=== PATIENT | female | born 1965 | race Caucasian/White ===

== ENCOUNTER 2017-08-11 10:29 | Emergency (ER) | payer MEDICAID ==
[2017-08-11 10:38] VITALS: TEMP 98.1; O2SAT 96
--- NOTE | 2017-08-11 11:18 | EDPHY ---
H & P Stated Complaint: epigastric pain since 07/22 worse post eting/sat/us epigastric hernia Time Seen by Provider: 08/11/17 10:53 HPI/ROS: CHIEF COMPLAINT: Postprandial epigastric pain since late June HISTORY OF PRESENT ILLNESS: 52-year-old female generally healthy complaining of postprandial epigastric pain since 07/22/2017. She describes the pain as exclusively postprandial. She last experienced it yesterday evening after eating a skin less baked potato and other bland food. Describes having bent over epigastric pain with mild nausea. No vomiting. Bowel movements have been normal. She has seen her primary care provider recently and also consultation with Dr Ravinder Chen surgery as recently as a few days ago. She has an appointment with [facility] Dr. Reagan Vickers scheduled for 09/03/2017 however she is concerned about the recurrent nature of this. She has a friend who is a starch cooker in [place] who recommend she come to the ER for evaluation. At the time I interview the patient she is currently asymptomatic. She did not eat breakfast today. PRIMARY CARE PROVIDER: Dr. Merlyn Velasquez REVIEW OF SYSTEMS: A ten point review of systems was performed and is negative with the exception of the items mentioned in the HPI PAST MEDICAL & SURGICAL HISTORY: No abdominal surgery history SOCIAL HISTORY: Nonsmoker, PHYSICAL EXAM (Prior to examination, patient consented to physical exam, hands were washed and my usual and customary physical exam procedures followed) 1) GENERAL: Well-developed, well-nourished, alert and oriented. Appears to be in no acute distress. 2) HEAD: Normocephalic, atraumatic 3) HEENT: Pupils equal, round, reactive to light bilaterally. Sclera anicteric. [Nasopharynx, oropharynx, clear, no lesions moist mucous membranes 4) NECK: Full range of motion, no meningeal signs. 5) LUNGS: Clear auscultation bilaterally, no wheezes, no rhonchi, no retractions. 6) HEART: Regular rate and rhythm, no murmur, no heave, no gallop. 7) ABDOMEN: No guarding, no rebound, no focal tenderness, negative McBurney's, negative Arora's, negative Rovsing's, negative peritoneal sign, 8) MUSCULOSKELETAL: Moving all extremities, no focal areas of tenderness, no obvious trauma. No peripheral edema or discoloration. 9) BACK: No CVA tenderness, no midline vertebral tenderness, no fluctuance, no step-off, no obvious trauma, no visual or palpable abnormality. 10) SKIN: No rash, no petechiae. 11) Psychiatric: Patient is oriented X 3, there is no agitation. DIFFERENTIAL DIAGNOSIS: In no particular order, including but not limited to biliary colic, cholecystitis, peptic ulcer disease, pancreatitis, and gastroenteritis. This is a partial list of diagnoses considered. These considerations are based on history, physical exam, past history and reassessment. - Personal History LMP (Females 10-55): Post Menopausal Current Tetanus/Diphtheria Vaccine: Yes - Medical/Surgical History Hx Asthma: No Hx Chronic Respiratory Disease: No Hx Diabetes: No Hx Cardiac Disease: No Hx Renal Disease: No Hx Cirrhosis: No Hx Alcoholism: No Hx HIV/AIDS: No Hx Splenectomy or Spleen Trauma: No Other PMH: denies - Social History Smoking Status: Never smoked Constitutional: Initial Vital Signs Temperature (C) 36.7 C 08/11/17 10:34 Heart Rate 77 08/11/17 10:34 Respiratory Rate 20 08/11/17 10:34 Blood Pressure 135/76 H 08/11/17 10:34 O2 Sat (%) 96 08/11/17 10:34 O2 Delivery Mode Room Air Allergies/Adverse Reactions: sulfacetamide Allergy (Verified 08/11/17 10:33) Home Medications: Medication Instructions Recorded Ambien 08/11/17 Gaviscon 80-14.2 mg Tab Chew 08/11/17 Klonopin 08/11/17 Prevacid 08/11/17 Medical Decision Making - Diagnostics Imaging Results: Imaging Impressions Abdomen Ultrasound 08/11/17 11:14 Impression: Normal right upper quadrant ultrasound. Mild limited visualization of the head of the pancreas secondary overlying bowel gas. Results called and discussed with Mynor Peters PA-C on August 11, 2017 at 1303 hours. ED Course/Re-evaluation: 11:18 a.m.: Will obtain diagnostic studies including ultrasound of the gallbladder, CT of abdomen and pelvis. Patient has been informed that these may be negative however she will necessitate further evaluation. At this time I do not think that admission for HIDA or MRCP currently indicated. Doubt cardiac etiology such as NE as the patient describes excludes postprandial pain. 1:28 p.m.: Re-evaluation. Discussed her laboratory and diagnostic results. Doubt acute pancreatitis, doubt acute cholecystitis, doubt acute appendicitis or acute surgical abdominal pathology. This point I do not think that further diagnostic studies, emergent GI consultation or hospitalization is indicated. Plan will be follow-up/keep her appointment with Gastroenterology. She is already on a PPI. We discussed dietary precautions instructions. She feels comfortable being discharged. All questions and concerns addressed by myself. Care of patient under supervision of secondary supervising physician Dr Patricia with whom I discussed case. 1:43 p.m.: Patient requested I speak with Dr. Reagan Vickers with whom she has an upcoming appointment. Dr. Katerine Owens is on-call for Dr. Vickers. Spoke with Dr. Owens at this time and he will forward this information to the office and Dr. Vickers. - Data Points Laboratory Results: Laboratory Results 08/11/17 11:10 08/11/17 11:10 08/11/17 08/11/17 08/11/17 13:05 11:10 11:10 WBC RBC Hgb Hct MCV MCH MCHC RDW Plt Count MPV Neut % (Auto) Lymph % (Auto) [place] % (Auto) Eos % (Auto) Baso % (Auto) Nucleat RBC Rel Count Absolute Neuts (auto) Absolute Lymphs (auto) Absolute Monos (auto) Absolute Eos (auto) Absolute Basos (auto) Absolute Nucleated RBC Immature Gran % Immature Gran # Sodium 144 mEq/L mEq/L (135-145) Potassium 3.6 mEq/L mEq/L (3.5-5.2) Chloride 108 mEq/L mEq/L (97-110) Carbon Dioxide 26 mEq/l mEq/l (22-31) Anion Gap 10 mEq/L mEq/L (8-16) BUN 16 mg/dL mg/dL (7-23) Creatinine 0.8 mg/dL mg/dL (0.6-1.0) Estimated GFR > 60 Glucose 82 mg/dL mg/dL (70-100) Calcium 8.8 mg/dL mg/dL (8.5-10.4) Total Bilirubin 0.7 mg/dL mg/dL (0.1-1.4) Conjugated Bilirubin 0.3 mg/dL mg/dL (0.0-0.5) Unconjugated Bilirubin 0.4 mg/dL mg/dL (0.0-1.1) AST 52 IU/L H IU/L (14-46) ALT 87 IU/L H IU/L (9-52) Alkaline Phosphatase 101 IU/L IU/L (38-126) Total Protein 6.3 g/dL g/dL (6.3-8.2) Albumin 3.8 g/dL g/dL (3.5-5.0) Lipase 52 IU/L IU/L (23-300) Beta HCG, Qual NEGATIVE Urine Color YELLOW Urine Appearance MODERATELY TURBID Urine pH 7.0 (5.0-7.5) Ur Specific [place] 1.020 (1.002-1.030) Urine Protein NEGATIVE (NEGATIVE) Urine Ketones NEGATIVE (NEGATIVE) Urine Blood NEGATIVE (NEGATIVE) Urine Nitrate NEGATIVE (NEGATIVE) Urine Bilirubin NEGATIVE (NEGATIVE) Urine Urobilinogen NEGATIVE EU EU (0.2-1.0) Ur Leukocyte Esterase NEGATIVE (NEGATIVE) Urine RBC NONE SEEN /hpf /hpf (0-3) Urine WBC 1-3 /hpf /hpf (0-3) Ur Epithelial Cells NONE SEEN /lpf /lpf (NONE-1+) Amorphous Sediment PRESENT /hpf /hpf (NONE-1+) Urine Glucose NEGATIVE (NEGATIVE) 08/11/17 11:10 WBC 5.91 10^3/uL 10^3/uL (3.80-9.50) RBC 5.18 10^6/uL 10^6/uL (4.18-5.33) Hgb 16.2 g/dL g/dL (12.6-16.3) Hct 45.4 % % (38.0-47.0) MCV 87.6 fL fL (81.5-99.8) MCH 31.3 pg pg (27.9-34.1) MCHC 35.7 g/dL g/dL (32.4-36.7) RDW 11.7 % % (11.5-15.2) Plt Count 184 10^3/uL 10^3/uL (150-400) MPV 11.8 fL H fL (8.7-11.7) Neut % (Auto) 53.4 % % (39.3-74.2) Lymph % (Auto) 23.4 % % (15.0-45.0) [place] % (Auto) 6.6 % % (4.5-13.0) Eos % (Auto) 15.2 % H % (0.6-7.6) Baso % (Auto) 1.2 % % (0.3-1.7) Nucleat RBC Rel Count 0.0 % % (0.0-0.2) Absolute Neuts (auto) 3.16 10^3/uL 10^3/uL (1.70-6.50) Absolute Lymphs (auto) 1.38 10^3/uL 10^3/uL (1.00-3.00) Absolute Monos (auto) 0.39 10^3/uL 10^3/uL (0.30-0.80) Absolute Eos (auto) 0.90 10^3/uL H 10^3/uL (0.03-0.40) Absolute Basos (auto) 0.07 10^3/uL 10^3/uL (0.02-0.10) Absolute Nucleated RBC 0.00 10^3/uL 10^3/uL (0-0.01) Immature Gran % 0.2 % % (0.0-1.1) Immature Gran # 0.01 10^3/uL 10^3/uL (0.00-0.10) Sodium Potassium Chloride Carbon Dioxide Anion Gap BUN Creatinine Estimated GFR Glucose Calcium Total Bilirubin Conjugated Bilirubin Unconjugated Bilirubin AST ALT Alkaline Phosphatase Total Protein Albumin Lipase Beta HCG, Qual Urine Color Urine Appearance Urine pH Ur Specific [place] Urine Protein Urine Ketones Urine Blood Urine Nitrate Urine Bilirubin Urine Urobilinogen Ur Leukocyte Esterase Urine RBC Urine WBC Ur Epithelial Cells Amorphous Sediment Urine Glucose Departure - Departure Disposition: Home, Routine, Self-Care Clinical Impression: Postprandial abdominal pain in left upper quadrant Condition: Good Instructions: Acute Abdominal Pain (ED) Additional Instructions: Seek immediate medical attention if you develop new or worsening symptoms, if you develop fevers, chills, inability to tolerate oral intake or any other symptoms that concerns you. Recommend eating bland, non spicy, non fatty foods. Referrals: Merlyn Velasquez MD [Primary Care Provider] - As per Instructions Keep, your upcoming appointment with Gastroenterology [Other] - As per Instructions
[2017-08-11 11:30] LABS: PLATELET COUNT 184 10^3/uL (150-400)
[2017-08-11] MEDS ORDERED: IOPAMIDOL (ISOVUE-300) 100 ML BTL ONE (12:01)
[2017-08-11 13:17] VITALS: BP 166/106; PULSE 82; RESP 16
== END 2017-08-11 14:01 | disposition home or self-care (01) ==
DX: R10.12 Left upper quadrant pain (principal)
CPT/HCPCS: Q9967

== ENCOUNTER → 2018-01-13 | Outpatient (CLI) | payer MEDICAID | LOC: BMCIMAGING 17:00 | PROVIDERS: ATTEND Internal Medicine | DX: S93.409A Sprain of unspecified ligament of unspecified ankle, initial encounter (principal); M79.671 Pain in right foot; X50.9XXA Other and unspecified overexertion or strenuous movements or postures, initial encounter ==

== ENCOUNTER 2018-07-30 11:24 | Emergency (ER) | payer MEDICAID ==
--- NOTE | 2018-07-30 12:27 | EDPHY ---
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 She thought her boot was stuck into her binding 1 was not. She leaned back. She fell back and struck her head on the ground. She did not lose consciousness. She was able to continue skiing. Since that time she has had a headache, mild light sensitivity and feeling foggy. She has had no vomiting. No focal weakness or numbness. No neck pain. No visual change. REVIEW OF SYSTEMS: 10 systems were reveiwed and are negative with the exception of the elements mentioned in the history of present illness. Past Medical/Surgical History: Includes peptic ulcer disease Social history: The patient does not smoke Smoking Status: Never smoked Physical Exam: Vitals noted GENERAL: Well-appearing, in no acute distress, alert. HEENT: Eyes normal to inspection, normal pharynx, no signs of dehydration. NECK: Normal, supple. Nexus negative. No spinal tenderness. RESPIRATORY: Clear to auscultation bilaterally, no rales, rhonchi or wheezing. CVS: Regular rate and rhythm, no rubs, murmurs, or gallops. ABDOMEN: Soft, nontender, nondistended, no organomegaly. BACK: Normal to inspection, no CVA tenderness. SKIN: Normal color, no rash, warm, dry. No pallor. EXTREMITIES: No pedal edema, no calf tenderness, no Homans sign or cords, no joint swelling. NEURO/PSYCH: Higher functions: Alert and Oriented x3. Normal speech and cognition. Normal mood and affect. Cranial nerves: Normal as tested. Cerebellar: Normal as tested. Good finger to nose, good [id number], normal gait. Peripheral exam: Normal motor exam. Normal sensation. Normal reflexes. Constitutional: Initial Vital Signs Temperature (C) 36.7 C 07/30/18 11:26 Heart Rate 64 07/30/18 11:26 Respiratory Rate 16 07/30/18 11:26 Blood Pressure 134/82 H 07/30/18 11:26 O2 Sat (%) 97 07/30/18 11:26 O2 Delivery Mode Room Air Allergies/Adverse Reactions: sulfacetamide Allergy (Verified 08/11/17 10:33) Home Medications: Medication Instructions Recorded NK [No Known Home Meds] 07/30/18 Medical Decision Making ED Course/Re-evaluation: In the emergency department I discussed possible etiologies with the patient. I answered all her questions. At this time I do not feel she needs head CT imaging. I discussed limitations of physical exam. Patient feels comfortable this plan. She will return home with concussion precautions. She was given follow-up with Dr. Torres. Differential Diagnosis: My differential includes but is not limited to concussion, subarachnoid hemorrhage, subdural hematoma, epidural hematoma, dissection, aneurysm, contusion Departure - Departure Disposition: Home, Routine, Self-Care Clinical Impression: Head injury Qualifiers: Encounter type: initial encounter Qualified Code(s): S09.90XA - Unspecified injury of head, initial encounter Condition: Good Instructions: Concussion (ED), Head Injury (ED) Additional Instructions: You been given instructions on head injury. If your symptoms persist see her primary care physician. You also been given follow-up with Dr. Torres who works closely with patient's who have the diagnosis of concussion Referrals: Joanne Onofre MD [Primary Care Provider] - 5-7 days, call for appt. Yaritza Torres MD [Medical Doctor] - 5-7 days, call for appt.
[2018-07-30 12:43] VITALS: BP 122/86
== END 2018-07-30 12:43 | disposition home or self-care (01) ==
DX: S09.90XA Unspecified injury of head, initial encounter (principal); V00.321A Fall from snow-skis, initial encounter; Y93.23 Activity, snow (alpine) (downhill) skiing, snowboarding, sledding, tobogganing and snow tubing; Y99.9 Unspecified external cause status; Y92.828 Other wilderness area as the place of occurrence of the external cause